=== PATIENT | female | born 1990 | race Caucasian/White ===

== ENCOUNTER 2016-09-24 21:49 | Outpatient (CLI) | payer MEDICAID ==
[~2016-09-24] VITALS: Ht 167.6 cm; Wt 93.0 kg
[2016-09-24 22:10] VITALS: BP 103/70; PULSE 84; RESP 18
[2016-09-24 22:48] VITALS: Ht 167.6 cm; Wt 93.0 kg
[2016-09-24 23:52] LABS: BASOPHILS % 0.2 % (0.0-2.0); EOSINOPHILS # 0.1 10^3/ul (0.0-0.5); HEMATOCRIT 31.9 % (37.0-47.0); HEMOGLOBIN 10.3 g/dl (12.0-16.0); LYMPHOCYTES # 2.6 10^3/ul (0.8-2.9); MEAN CORPUSCULAR HEMOGLOBIN 29.7 pg (29.0-33.0); MEAN CORPUSCULAR HGB CONC 32.3 g/dl (32.0-37.0); MEAN CORPUSCULAR VOLUME 91.9 fl (82.0-101.0); MEAN PLATELET VOLUME 10.7 fl (7.4-10.4); MONOCYTE # 0.7 10^3/ul (0.3-0.9); MONOCYTES % 6.6 % (0.0-11.0); NEUTROPHIL # 6.6 10^3/ul (1.6-7.5); NEUTROPHILS % 65.1 % (39.0-77.0); PLATELET COUNT 274 10^3/UL (140-415); RED BLOOD COUNT 3.47 10^6/ul (4.20-5.40); RED CELL DISTRIBUTION WIDTH 12.8 % (11.5-14.5); WHITE BLOOD COUNT 10.1 10^3/ul (4.8-10.8)
[2016-09-25 00:27] LABS: ADD UMIC NO; UR ASCORBIC ACID NEGATIVE (NEGATIVE); UR BILIRUBIN (Dip) NEGATIVE (NEGATIVE); UR BLOOD (Dip) NEGATIVE (NEGATIVE); UR CLARITY CLEAR (CLEAR); UR COLOR YELLOW (YELLOW); UR GLUCOSE (Dip) NEGATIVE (NEGATIVE); UR KETONES (Dip) NEGATIVE (NEGATIVE); UR LEUKOCYTE ESTERASE (Dip) NEGATIVE Leu/ul (NEGATIVE); UR NITRITE (Dip) NEGATIVE (NEGATIVE); UR SPECIFIC GRAVITY (Dip) 1.025 (1.003-1.030); UR TOTAL PROTEIN (Dip) NEGATIVE (NEGATIVE); UR UROBILINOGEN (Dip) NEGATIVE (NEGATIVE)
--- NOTE | 2016-09-25 00:27 | RADRPT ---
PROCEDURE: Limited OB ultrasound CLINICAL INDICATION: 26 year old female. Labor and delivery patient. Evaluate amniotic fluid. TECHNIQUE: Sonographic evaluation to assess the amniotic fluid index was performed. Transabdomina l imaging of the gravid uterus was performed. COMPARISON: None. FINDINGS: Estimated due date December 26, 2016 Gestational age by NICK 26 weeks 5 days A single live intrauterine in breech presentation with head on maternal left is iden tified. The heart rate measures 152 bpm. The amniotic -fluid index equals approximately 15.7 cm. There is an anterior placenta, grade 1. Cervix is closed and measures 5.7 cm. IMPRESSION: Single live intrauterine in breech presentation. Normal amniotic fluid volume. Amniotic fluid index measures 15.7 cm. RPTAT: HCTS Physician Andres Date Time Electronically viewed and signed by Physician Andres on 09/25/2016 00:26 CS/
--- NOTE | 2016-09-25 01:58 | PN ---
Triage Information Date/Time Reason for visit: Abd/pelvic pain Weeks of Gestation 26+ /Para 1/0 Diabetes: none Hypertention: none Objective Vital Signs Date Time Temp Pulse Resp B/P Pulse Ox O2 Delivery O2 Flow Rate FiO2 09/24/16 22:10 98.1 84 18 103/70 100 Room Air Heart Rate: 140's Contractions: None Exam labsWNL Back and Ab exam WNL Ultrasonographic finding reviewed Results/Medications Result Diagram: 09/24/16 2321 Results 24 hrs Laboratory Tests Test 09/24/16 22:30 09/24/16 23:21 09/24/16 23:30 Urine Color YELLOW Urine Clarity CLEAR Urine pH 6.0 Urine Specific [place] 1.025 Urine Ketones NEGATIVE Urine Nitrite NEGATIVE Urine Bilirubin NEGATIVE Urine Urobilinogen NEGATIVE Urine Leukocyte Esterase NEGATIVE Urine Hemoglobin NEGATIVE Urine Glucose NEGATIVE Urine Total Protein NEGATIVE White Blood Count 10.1 Red Blood Count 3.47 L Hemoglobin 10.3 L Hematocrit 31.9 L Mean Corpuscular Volume 91.9 Mean Corpuscular Hemoglobin 29.7 Mean Corpuscular Hemoglobin Concent 32.3 Red Cell Distribution Width 12.8 Platelet Count 274 Mean Platelet Volume 10.7 H Neutrophils % 65.1 Lymphocytes % 26.0 Monocytes % 6.6 Eosinophils % 1.0 Basophils % 0.2 Nucleated Red Blood Cells % 0.0 Neutrophils # 6.6 Lymphocytes # 2.6 Monocytes # 0.7 Eosinophils # 0.1 Basophils # 0.0 Nucleated Red Blood Cells # 0.0 Fibronectin NEGATIVE Disposition: Discharge Assessment/Plan precautions discussed hydration recommended follow up in her private physician tomorrow VALERIA GEE M.D. Sep 25, 2016 01:58
--- NOTE | 2016-09-25 07:56 | TRIAGE ---
OB Triage Datetime Report Generated by CPN: 09/25/2016 07:56 Datetime: 09/25/2016 02:00 Labor Evaluation Frequency: 0 Monitor Mode: External Resting Tone [place]: Relaxed Datetime: 09/25/2016 01:00 Labor Evaluation Frequency: 0 Monitor Mode: External Resting Tone [place]: Relaxed Datetime: 09/25/2016 00:00 Labor Evaluation Frequency: 0 Monitor Mode: External Resting Tone [place]: Relaxed Datetime: 09/24/2016 23:00 Labor Evaluation Frequency: 0 Monitor Mode: External Resting Tone [place]: Relaxed Datetime: 09/24/2016 22:09 Temperature Route: Oral Pain Assessment Pain Scale: 8 Pain Presence: Intermittent Pain Location: Abdomen; Back Pain Goal: 8 Pain Relief Measures: Comfort Measures Pain Assessment Comments: PT REPORTS PAIN RADIATING LEFT BACK TO RIGHT BACK Datetime: 09/24/2016 22:08 Monitor Mode: External Resting Tone [place]: Relaxed Heart Rate FHR Baseline Rate: 145 Monitor Mode: Doppler Comments: UNABLE TO DETECT FHR VIA US. DOPPLER USED TO CONFIRM FHR. Datetime: 09/24/2016 22:00 Assessment Type: Triage Maternal Assessment Level of Consciousness: Fully Conscious DTR's/Clonus: DTRs 2+; No Clonus Headache: Denies Blurred Vision: No Respiratory Effort: Unlabored; Regular Rhythm; Equal Expansion Breath Sounds, Left: Clear and Equal Breath Sounds, Right: Clear and Equal Nausea/Vomiting: Denies RUQ Epigastric Pain: Denies Lower Extremities Edema: None Degree: None Upper Extremities Edema: None Degree: None Facial Edema: None Fall Risk Assessment History of Falling: (0) No Secondary Diagnosis: (0) No Ambulatory Aid: (0) Bedrest/Nurse Assist IV Therapy: (0) No Gait: (0) Normal/Bedrest/Immobile Mental Status: (0) Oriented to Own Ability Fall Score: 0 Fall Risk Score Definition: No Risk: No action required Datetime: 09/24/2016 21:54 EGA: 26.5 Datetime: 09/24/2016 21:43 Stage of : OB Triage Time of Arrival: 09/24/2016 21:43 Arrived By: Wheelchair Arrived From: Emergency Dept Chief Complaint: Back pain radiating from left side to right side; abdominal pressure Movement: Decreased (Annotations: Data stored by CPN on behalf of user) Contractions: Denies/Absent Contractions: N/A Rupture of Membranes: Denies Vaginal Bleeding: None Vaginal Discharge: Denies Recent Sexual Intercouse: Yes Abdominal Trauma: Not Applicable Patient Complaints: Back Pain Time Provider Notified: 09/24/2016 23:02 Provider Notified: LABORIST MD GEE Initial Plan: DOPPLER FOR FHR; ORDERED FOR UA, VALDEMAR, CERVICAL LENGTH, FFN, CBC
== END 2016-09-25 02:05 | disposition home or self-care (01) ==
LOC: OBT 21:49 → L-D 21:51 → OBT 09-25 02:05
PROVIDERS: ATTEND Obstetrics & Gynecology
DX: O26.892 Other specified pregnancy related conditions, second trimester (principal); Z3A.26 26 weeks gestation of pregnancy; R10.2 Pelvic and perineal pain
CPT/HCPCS: 76815; 76817; 81003; 82731; 85025; Z7500; G0463

== ENCOUNTER 2016-12-01 14:18 | Outpatient (CLI) | payer MEDICAID ==
[~2016-12-01] VITALS: Ht 167.6 cm; Wt 98.7 kg
--- NOTE | 2016-12-01 15:27 | RADRPT ---
PROCEDURE: Obstetrical ultrasound CLINICAL INDICATION: Decreased movements TECHNIQUE: Multiple sonographic images of the pelvis were obtained. The images were reviewed on a PACS workstation. COMPARISON: None FINDINGS: The cervix is not well visualized. There is a single viable intrauterine gestation. Cardiac activity is present with 146 beats per minute. There is a breech presentation. The placenta is bilobed and fundal in location. There is no evidence for an abruption or placenta pr evia. There is a subjectively normal amount of amniotic fluid. Measurements were made in order to determine age. The results are as follows (cm): BPD =8.99 HC =33.08 AC =31.49 FL =6.85 Estimated gestational age by ultrasound of approximately 36 weeks, 1 day. The estimated date of delivery by ultrasound is 12/28/2016. Estimated gestational age by LMP of approximately 36 weeks, 3 days. The estimated date of delivery by LMP is 12/26/2016. EFW = 2744 grams (33rd percentile) IMPRESSION: Single viable intrauterine gestation of approximately 36 weeks, 1 day . The estimated date of delivery is 12/28/2016 . Dating by ultrasound is within 2 days of dating by LMP. Breech presentation. Fundal and bilobed placenta. Estimated weight is in the 33rd percentile. RPTAT: EE Physician Black Date Time Electronically viewed and signed by Physician Black on 12/01/2016 15:27 /
--- NOTE | 2016-12-01 15:28 | RADRPT ---
PROCEDURE: US OB biophysical profile. CLINICAL INDICATION: Biophysical profile TECHNIQUE: Multiple sonographic images of the pelvis were obtained. The images were reviewed on a PACS workstation. COMPARISON: September 24, 2016 FINDINGS: There is a single live intrauterine , in 10-gauge presentation. A normal heart rate i s identified measuring 179 beats per minute. The amniotic fluid index is within normal limits measur ing 9.5 cm. Biophysical profile: movement 2/2 tone 2/2. breathing 2/2 VALDEMAR 2/2 Total 09/19 IMPRESSION: 1. Biophysical profile score of 8/8. 2. Single live intrauterine in breech presentation with normal heart rate of 179 bpm . 3. Normal amniotic fluid index of 9.5 cm. Previously this measured 15.7 cm on September 25, 2016. Physician Karissa Date Time Electronically viewed and signed by Physician Karissa on 12/01/2016 15:28 LALA/
[2016-12-01 15:41] LABS: ADD UMIC YES; UR ASCORBIC ACID NEGATIVE (NEGATIVE); UR BACTERIA FEW /HPF (NONE SEEN); UR BILIRUBIN (Dip) NEGATIVE (NEGATIVE); UR BLOOD (Dip) NEGATIVE (NEGATIVE); UR CLARITY SLIGHTLY CLOUDY (CLEAR); UR COLOR YELLOW (YELLOW); UR GLUCOSE (Dip) NEGATIVE (NEGATIVE); UR KETONES (Dip) NEGATIVE (NEGATIVE); UR LEUKOCYTE ESTERASE (Dip) TRACE Leu/ul (NEGATIVE); UR MUCUS FEW /HPF (NONE SEEN); UR NITRITE (Dip) NEGATIVE (NEGATIVE); UR RBC 2 /HPF (0-5); UR SPECIFIC GRAVITY (Dip) 1.013 (1.003-1.030); UR SQUAMOUS EPITHELIAL CELL FEW /HPF (FEW); UR TOTAL PROTEIN (Dip) NEGATIVE (NEGATIVE); UR UROBILINOGEN (Dip) NEGATIVE (NEGATIVE)
[2016-12-01 15:53] LABS: BASOPHILS % 0.5 % (0.0-2.0); EOSINOPHILS % 0.3 % (0.0-7.0); HEMATOCRIT 34.4 % (37.0-47.0); HEMOGLOBIN 11.2 g/dl (12.0-16.0); LYMPHOCYTES # 2.2 10^3/ul (0.8-2.9); LYMPHOCYTES % 24.9 % (15.0-51.0); MEAN CORPUSCULAR HEMOGLOBIN 29.2 pg (29.0-33.0); MEAN CORPUSCULAR HGB CONC 32.6 g/dl (32.0-37.0); MEAN CORPUSCULAR VOLUME 89.8 fl (82.0-101.0); MEAN PLATELET VOLUME 11.5 fl (7.4-10.4); MONOCYTE # 0.5 10^3/ul (0.3-0.9); NEUTROPHIL # 5.9 10^3/ul (1.6-7.5); NEUTROPHILS % 67.6 % (39.0-77.0); PLATELET COUNT 250 10^3/UL (140-415); RED BLOOD COUNT 3.83 10^6/ul (4.20-5.40); RED CELL DISTRIBUTION WIDTH 13.4 % (11.5-14.5); WHITE BLOOD COUNT 8.7 10^3/ul (4.8-10.8)
[2016-12-01 16:09] LABS: INR 0.94; PROTIME 12.6 Sec (12.2-14.2)
[2016-12-01 16:10] LABS: PARTIAL THROMBOPLASTIN TIME 29.6 Sec (25.0-35.0)
[2016-12-01 16:33] LABS: ALBUMIN 3.3 g/dl (3.3-4.9); CREATININE 0.72 mg/dl (0.44-1.00); POTASSIUM 4.3 mmol/L (3.5-5.1); TOTAL PROTEIN 6.6 g/dl (6.1-8.1); URIC ACID 5.2 mg/dl (3.1-7.9)
[2016-12-01] MEDS ORDERED: LACTATED RINGER'S 1,000 ML IV SCH (16:35)
[2016-12-01 16:57] VITALS: Ht 167.6 cm; Wt 98.7 kg
[2016-12-01 17:09] VITALS: BP 124/80; PULSE 75; RESP 20
[2016-12-01] MEDS ORDERED: PREN-93 PO (18:29)
--- NOTE | 2016-12-01 18:45 | PN ---
Triage Information Date/Time Reason for visit: Decreased movement Weeks of Gestation 36 weeks 3 days /Para Diabetes: none Objective Vital Signs Date Time Temp Pulse Resp B/P Pulse Ox O2 Delivery O2 Flow Rate FiO2 12/01/16 17:09 98.1 75 20 124/80 99 Room Air Heart Rate: 120's Contractions: None Exam 36 weeks 3 days came to the triage unit for decreased movement underwent biophysical profile which was 09/19 VALDEMAR 9.5 recommended IV hydration return to triage unit tomorrow to repeat VALDEMAR on ultrasound examination was noted baby's breech presented, patient will return a.m. for repeat VALDEMAR/ NST Results/Medications Result Diagram: 12/01/16 1532 12/01/16 1532 Results 24 hrs Laboratory Tests Test 12/01/16 14:25 12/01/16 15:32 12/01/16 15:33 Urine Color YELLOW Urine Clarity SLIGHTLY CLOUDY A Urine pH 6.0 Urine Specific [place] 1.013 Urine Ketones NEGATIVE Urine Nitrite NEGATIVE Urine Bilirubin NEGATIVE Urine Urobilinogen NEGATIVE Urine Leukocyte Esterase TRACE A Urine Microscopic RBC 2 Urine Microscopic WBC 4 Urine Squamous Epithelial Cells FEW Urine Bacteria FEW A Urine Mucus FEW A Urine Hemoglobin NEGATIVE Urine Glucose NEGATIVE Urine Total Protein NEGATIVE White Blood Count 8.7 Red Blood Count 3.83 L Hemoglobin 11.2 L Hematocrit 34.4 L Mean Corpuscular Volume 89.8 Mean Corpuscular Hemoglobin 29.2 Mean Corpuscular Hemoglobin Concent 32.6 Red Cell Distribution Width 13.4 Platelet Count 250 Mean Platelet Volume 11.5 H Neutrophils % 67.6 Lymphocytes % 24.9 Monocytes % 6.0 Eosinophils % 0.3 Basophils % 0.5 Nucleated Red Blood Cells % 0.0 Neutrophils # 5.9 Lymphocytes # 2.2 Monocytes # 0.5 Eosinophils # 0.0 Basophils # 0.0 Nucleated Red Blood Cells # 0.0 Sodium Level 136 Potassium Level 4.3 Chloride Level 106 Carbon Dioxide Level 22 Anion Gap 12 Blood Urea Nitrogen 11 Creatinine 0.72 Glucose Level 88 Uric Acid 5.2 Calcium Level 9.0 Total Bilirubin 0.0 L Direct Bilirubin 0.00 Indirect Bilirubin 0.0 Aspartate Amino Transf (AST/SGOT) 35 Alanine Aminotransferase (ALT/SGPT) 45 Alkaline Phosphatase 145 H Total Protein 6.6 Albumin 3.3 Globulin 3.30 H Albumin/Globulin Ratio 1.00 Prothrombin Time 12.6 Prothrombin Time Ratio 1.0 INR International Normalized Ratio 0.94 Activated Partial Thromboplast Time 29.6 Fibrinogen 647.0 H Plasma Fibrin Degradation Products Pending Medications Current Medications Lactated Ringer's (Lr) 1,000 ml @ 125 mls/hr Q8H IV Last administered on 12/01t 17:30; Admin Dose 125 MLS/HR; Start 12/01/16 at 16:35 Disposition: Discharge KENDRA JARA MD Dec 01, 2016 18:45
--- NOTE | 2016-12-01 19:22 | TRIAGE ---
OB Triage Datetime Report Generated by CPN: 12/01/2016 19:21 Datetime: 12/01/2016 18:21 Labor Evaluation Frequency: 0 Monitor Mode: External Duration (sec)2399: 0 Heart Rate FHR Baseline Rate: 155 Monitor Mode: External US Decelerations: None Category: Category I Comments: NST REACTIVE FOR GESTATIONAL AGE Datetime: 12/01/2016 17:19 Labor Evaluation Frequency: 0 Monitor Mode: External Duration (sec)2399: 0 Resting Tone [place]: Relaxed Heart Rate FHR Baseline Rate: 125 Monitor Mode: External US Variability: Moderate 6-25 bpm Accelerations: 15X15 Decelerations: None Category: Category I Datetime: 12/01/2016 16:31 Time of Arrival: 12/01/2016 14:12 EGA: 36.3 Arrived By: Ambulatory Arrived From: Home Chief Complaint: DFM Movement: Decreased Contractions: Denies/Absent Rupture of Membranes: Denies Vaginal Bleeding: None Vaginal Discharge: Denies Recent Sexual Intercouse: Denies Abdominal Trauma: Not Applicable Patient Complaints: None Time Provider Notified: 12/01/2016 14:30 Provider Notified: DR. JARA Initial Plan: NST Datetime: 12/01/2016 16:16 Labor Evaluation Frequency: 0 Monitor Mode: External Duration (sec)2399: 0 Resting Tone [place]: Relaxed Heart Rate FHR Baseline Rate: 145 Monitor Mode: External US Variability: Moderate 6-25 bpm Accelerations: 15X15 Decelerations: None Category: Category I Datetime: 09/24/2016 22:00 Fall Risk Assessment Fall Score: 0 Fall Risk Score Definition: No Risk: No action required Datetime: 09/24/2016 21:54 EGA: 26.5
[2016-12-01 19:57] LABS: FIBRIN SPLIT PRODUCT <10 ug/ml (<10)
== END 2016-12-01 18:40 | disposition home or self-care (01) ==
LOC: L-D 14:18 → OBT 14:18
PROVIDERS: ATTEND Obstetrics & Gynecology
DX: O36.8130 Decreased fetal movements, third trimester, not applicable or unspecified (principal); Z3A.36 36 weeks gestation of pregnancy
CPT/HCPCS: 36415; 76815; 76818; 80053; 81001; 84560; 85025; 85362; 85384; 85610; 85730; 96360; J7120; Z7500; G0463

== ENCOUNTER 2016-12-02 16:40 | Outpatient (CLI) | payer MEDICAID ==
[~2016-12-02] VITALS: Ht 167.6 cm; Wt 98.5 kg
[~2016-12-02 16:40] MED LIST: PREN-93 PO
[2016-12-02 16:52] VITALS: Ht 167.6 cm; Wt 98.5 kg
[2016-12-02 16:53] VITALS: BP 129/83; PULSE 70; RESP 16
--- NOTE | 2016-12-02 17:38 | RADRPT ---
PROCEDURE: US evaluation of amniotic fluid volume. CLINICAL INDICATION: Low amniotic fluid volume. TECHNIQUE: Multiple sonographic images of the gravid uterus were obtained utilizing velez-scale shamar ging. Sagittal and transverse images were obtained. The images were reviewed on a PACS workstation . VALDEMAR was measured. COMPARISON: 12/01/2016. FINDINGS: There is a single live intrauterine . heart rate is 150 beats per minute. Position is breech. Placenta is bilobed anterior / posterior grade II with no abruption or previa. VALDEMAR is 11.5 cm. (Normal = 5-20 cm.) IMPRESSION: 1. VALDEMAR is 11.5 cm. 2. Position is breech. RPTAT: QQ .Eulogio Denson MD, Date Time Electronically viewed and signed by .Eulogio Denson MD, on 12/02/2016 17:37 .R/
--- NOTE | 2016-12-02 17:59 | CONS ---
Date/Time of Note Date/Time of Note DATE: 12/02/16 TIME: 17:51 Consultation Date/Type/Reason Admit Date/Time December 02, 2016 OB triage consult this patient is a 26 years old 1 para 0 whose estimated date of confinement is December 26, 2016 which makes her 36 weeks and 4 days today. She came to OB triage to rule out oligohydramnios . On examination she is a well-developed well-nourished patient in no acute distress her general vital signs are normal with blood pressure of 129/83 , pulse rate of 70, respirations 16, and temperature 98.2. Her abdomen is soft she has very rare contractions, heart tracing is reactive with good variability occasional acceleration no sign of decelerations. Constitutional: No chills, No diaphoresis, No disoriented, No febrile, No improved, No no complaints, No other, No poor po, No requiring IVF, No requiring O2 Eyes: No discharge, No no complaints, No other, No pain, No redness, No visual change ENT: No bleeding, No congestion, No discharge, No dysphagia, No no complaints, No other, No pain, No sore throat Respiratory: No cough, No no complaints, No other, No pain, No pleuritic pain, No shortness of breath, No sputum, No wheezing Cardiovascular: No chest pain, No edema, No lightheadedness, No no complaints, No orthopenea, No other, No palpitations, No paroxysmal nocturnal dyspnea Gastrointestinal: No blood, No constipation, No decreased appetite, No diarrhea , No flatus, No nausea, No no complaints, No other, No pain, No passing stool, No vomiting Genitourinary: other, No bleeding, No discharge, No dysuria, No flank pain, No hematuria, No no complaints Musculoskeletal: No back pain, No bone/joint pain, No neck pain, No no complaints, No other, No restricted range of motion, No swelling Skin: No bruising, No erythema, No laceration, No no complaints, No other, No pruritis, No rash, No skin lesions Neurologic: other (Knee-jerk reflexes are normal), No confusion, No dizziness, No focal-weakness, No headache, No no complaints , No seizure, No syncope Endocrine: No dry skin, No no complaints, No other, No polydypsia, No polyuria , No temp intolerance Lymphatic: No adenopathy, No lymphadema, No no complaints, No other, No tender nodes Additional Comments .;Ultrasound study The multiple sonographic images that were taken from description revealed a single live intrauterine with heart rate of 150 bpm in breech presentation. The placenta is bilobed anterior /posterior Grade 2 with no evidence of abruption of placenta or previa Her amniotic fluid index was reported 11.5 cm. 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 She was advised to return to OB triage in case of labor vaginal bleeding or very low movement : Social History Smoking Status: Never smoker Exam/Review of Systems Vital Signs Vitals Vital Signs Date Time Temp Pulse Resp B/P Pulse Ox O2 Delivery O2 Flow Rate FiO2 12/02/16 16:53 98.2 70 16 129/83 TARUN JOHNSON MD Dec 02, 2016 17:59
== END 2016-12-02 17:52 | disposition home or self-care (01) ==
LOC: OBT 16:40 → L-D 16:40 → OBT 17:52
PROVIDERS: ATTEND Obstetrics & Gynecology
DX: O41.93X0 Disorder of amniotic fluid and membranes, unspecified, third trimester, not applicable or unspecified (principal); Z3A.36 36 weeks gestation of pregnancy
CPT/HCPCS: 76815; Z7500; G0463

== ENCOUNTER 2016-12-12 12:45 | Inpatient (IN) | payer MEDICAID ==
[~2016-12-12] VITALS: Ht 167.6 cm; Wt 99.7 kg
[2016-12-12 13:05] VITALS: Ht 167.6 cm; Wt 99.7 kg
[2016-12-12 13:06] VITALS: BP 138/95; PULSE 100; RESP 16
[2016-12-12] MEDS ORDERED: MISOPROSTOL 200 MCG TAB PR PRN (14:30)
[2016-12-12] MEDS ORDERED: OXYTOCIN 30 UNITS/LR 500 ML IV PRN (14:30)
[2016-12-12] MEDS ORDERED: MAGNESIUM SULFATE 4 GM/100 ML 100 ML IV SCH (14:30)
[2016-12-12] MEDS ORDERED: HYDROCODONE/APAP (5/325) TAB PO PRN (14:30)
[2016-12-12] MEDS ORDERED: METHYLERGONOVINE 0.2 MG INJ IM PRN (14:30)
[2016-12-12] MEDS ORDERED: IBUPROFEN 600 MG TAB PO PRN (14:30)
[2016-12-12] MEDS ORDERED: OXYTOCIN 30 UNITS/LR 500 ML IV SCH ×2 (14:30)
[2016-12-12] MEDS ORDERED: CARBOPROST 250 MCG INJ IM PRN (14:30)
[2016-12-12] MEDS ORDERED: LIDOCAINE 1% (MPF) 30 ML INJ INJ PRN (14:30)
[2016-12-12] MEDS ORDERED: DINOPROSTONE 10 MG VAG SUPP VAG ONE (14:30)
[2016-12-12] MEDS: LACTATED RINGER'S 1,000 ML IV SCH ×2 (14:57→23:15)
[2016-12-12] MEDS ORDERED: LACTATED RINGER'S 1,000 ML IV PRN (15:00)
--- NOTE | 2016-12-12 15:10 | TRIAGE ---
OB Triage Datetime Report Generated by CPN: 12/12/2016 15:10 Datetime: 12/12/2016 14:50 Assessment Type: Admission Assessment Vaginal Bleeding: None Maternal Assessment Level of Consciousness: Fully Conscious DTR's/Clonus: DTRs 2+; No Clonus Blurred Vision: No Respiratory Effort: Unlabored; Regular Rhythm; Equal Expansion Nausea/Vomiting: Denies RUQ Epigastric Pain: Denies Lower Extremities Edema: Bilateral Lower Extremities Degree: Pitting Upper Extremities Edema: Bilateral Upper Extremities Degree: None Facial Edema: None Fall Risk Assessment History of Falling: (0) No Secondary Diagnosis: (0) No Ambulatory Aid: (0) Bedrest/Nurse Assist IV Therapy: (0) No Gait: (0) Normal/Bedrest/Immobile Mental Status: (0) Oriented to Own Ability Fall Score: 0 Fall Risk Score Definition: No Risk: No action required Heart Rate FHR Baseline Rate: 140 Variability: Moderate 6-25 bpm Accelerations: 15X15 Decelerations: None Category: Category I Pain Assessment Pain Scale: 0 Pain Presence: None/Denies Pain Type: N/A Pain Goal: 2 Vaginal Exam Membrane Status: Intact Datetime: 12/12/2016 14:27 Monitor Mode: External Monitor Mode: External US Pain Assessment Pain Scale: 0 Pain Presence: None/Denies Pain Type: N/A Pain Goal: 0 Vaginal Exam Membrane Status: Intact Datetime: 12/12/2016 14:17 Labor Evaluation Frequency: occ Monitor Mode: External Duration (sec)2399: 60 Quality: Mild Pattern: Normal: <= 5 Contractions in 10 Minutes Resting Tone [place]: Relaxed Heart Rate FHR Baseline Rate: 145 Monitor Mode: External [place] Variability: Moderate 6-25 bpm Accelerations: 15X15 Decelerations: None Category: Category I Datetime: 12/12/2016 14:00 Labor Evaluation Frequency: occ Monitor Mode: External Duration (sec)2399: 50-60 Quality: Mild Pattern: Normal: <= 5 Contractions in 10 Minutes Resting Tone [place]: Relaxed Heart Rate FHR Baseline Rate: 145 Monitor Mode: External US Variability: Moderate 6-25 bpm Accelerations: 15X15 Decelerations: None Category: Category I Pain Assessment Pain Scale: 3 Pain Presence: Constant Pain Type: Dull Pain Location: Head Pain Goal: 3 Datetime: 12/12/2016 13:45 Stage of : OB Triage Datetime: 12/12/2016 13:30 Stage of : OB Triage Labor Evaluation Frequency: IRREG Monitor Mode: External Duration (sec)2399: 60-90 Quality: Mild Heart Rate FHR Baseline Rate: 135 Monitor Mode: External US Variability: Moderate 6-25 bpm Accelerations: 15X15 Decelerations: None Category: Category I Datetime: 12/12/2016 13:04 Assessment Type: Triage Maternal Assessment Level of Consciousness: Fully Conscious DTR's/Clonus: DTRs 2+; No Clonus Headache: Unilateral (Annotations: Right side) Blurred Vision: No Respiratory Effort: Unlabored; Regular Rhythm; Equal Expansion Breath Sounds, Left: Clear and Equal Breath Sounds, Right: Clear and Equal Nausea/Vomiting: Denies RUQ Epigastric Pain: Denies Lower Extremities Edema: None Degree: None Upper Extremities Edema: None Facial Edema: None Fall Risk Assessment History of Falling: (0) No Secondary Diagnosis: (0) No Ambulatory Aid: (0) Bedrest/Nurse Assist IV Therapy: (0) No Gait: (0) Normal/Bedrest/Immobile Mental Status: (0) Oriented to Own Ability Fall Score: 0 Fall Risk Score Definition: No Risk: No action required Datetime: 12/12/2016 12:54 Time of Arrival: 12/12/2016 12:40 EGA: 38.1 Arrived By: Ambulatory Arrived From: Office Chief Complaint: Pt. came to hospital from md office with prescription for eval for pih due to bp 154/104, 151/100 @ office, pt c/o right headache, deny visual disturbance, deny epigastric pain, den y dizziess Movement: Present Contractions: Denies/Absent Rupture of Membranes: Denies Vaginal Discharge: Denies Recent Sexual Intercouse: Denies Abdominal Trauma: Not Applicable Patient Complaints: Headache Time Provider Notified: 12/12/2016 12:59 Provider Notified: Initial Plan: pih labs Datetime: 12/02/2016 17:40 Labor Evaluation Frequency: occ Monitor Mode: External Duration (sec)2399: 60-80 Quality: Mild Pattern: Normal: <= 5 Contractions in 10 Minutes Resting Tone [place]: Relaxed Heart Rate FHR Baseline Rate: 145 Monitor Mode: External US Variability: Moderate 6-25 bpm Accelerations: 15X15 Decelerations: None Category: Category I Pain Presence: None/Denies Pain Type: N/A Datetime: 12/02/2016 16:55 Maternal Assessment Level of Consciousness: Fully Conscious DTR's/Clonus: DTRs 2+; No Clonus Headache: Denies Blurred Vision: No Respiratory Effort: Unlabored; Regular Rhythm; Equal Expansion Breath Sounds, Left: Clear and Equal Breath Sounds, Right: Clear and Equal Nausea/Vomiting: Denies RUQ Epigastric Pain: Denies Lower Extremities Edema: None Degree: None Upper Extremities Edema: None Facial Edema: None Fall Risk Assessment History of Falling: (0) No Secondary Diagnosis: (0) No Ambulatory Aid: (0) Bedrest/Nurse Assist IV Therapy: (0) No Gait: (0) Normal/Bedrest/Immobile Mental Status: (0) Oriented to Own Ability Fall Score: 0 Fall Risk Score Definition: No Risk: No action required Datetime: 12/02/2016 16:54 Time of Arrival: 12/02/2016 16:35 EGA: 36.5 Arrived By: Ambulatory Arrived From: Home Chief Complaint: Follow up nst and armani Movement: Present Contractions: Denies/Absent Patient Complaints: None Initial Plan: nst, u/s for armani Datetime: 12/01/2016 16:31 EGA: 36.4 Datetime: 12/01/2016 14:30 Stage of : OB Triage Assessment Type: Triage Maternal Assessment Level of Consciousness: Fully Conscious DTR's/Clonus: DTRs 2+; No Clonus Headache: Denies Blurred Vision: No Respiratory Effort: Unlabored; Regular Rhythm; Equal Expansion Breath Sounds, Left: Clear and Equal Breath Sounds, Right: Clear and Equal Nausea/Vomiting: Denies RUQ Epigastric Pain: Denies Lower Extremities Edema: None Degree: None Upper Extremities Edema: None Degree: None Facial Edema: None Temperature Route: Axillary Fall Risk Assessment History of Falling: (0) No Secondary Diagnosis: (0) No Ambulatory Aid: (0) Bedrest/Nurse Assist IV Therapy: (0) No Gait: (0) Normal/Bedrest/Immobile Mental Status: (0) Oriented to Own Ability Fall Score: 0 Fall Risk Score Definition: No Risk: No action required Datetime: 09/24/2016 22:00 Fall Score: 0 Fall Risk Score Definition: No Risk: No action required Datetime: 09/24/2016 21:54 EGA: 26.6
[2016-12-12] MEDS: MAGNESIUM SULFATE 20 GM/500 ML 500 ML IV SCH (15:31)
--- NOTE | 2016-12-12 16:53 | TRIAGE ---
OB Triage Datetime Report Generated by CPN: 12/12/2016 16:53 Datetime: 12/12/2016 16:30 Frequency: 0 Monitor Mode: External Resting Tone [place]: Relaxed FHR Baseline Rate: 140 Monitor Mode: External US FHR Baseline Changes: No Baseline Change Variability: Moderate 6-25 bpm Accelerations: 15X15 Decelerations: None Category: Category I Datetime: 12/12/2016 15:54 Level of Consciousness: Fully Conscious DTR's/Clonus: DTRs 1+ Headache: Denies Nausea/Vomiting: Denies RUQ Epigastric Pain: Denies Frequency: 0 Monitor Mode: External Resting Tone [place]: Relaxed FHR Baseline Rate: 140 Monitor Mode: External US FHR Baseline Changes: No Baseline Change Variability: Moderate 6-25 bpm Accelerations: 15X15 Decelerations: None Category: Category I Pain Scale: 0 Pain Presence: None/Denies Pain Relief Measures: Comfort Measures Datetime: 12/12/2016 15:45 Dilatation (cms): 0.0 Effacement (%): 20 Station: -3 Datetime: 12/12/2016 15:44 Dilatation (cms): 0.0 Effacement (%): 20 Station: -2 Exam By: ps Vaginal Bleeding: None Cervix, Consistency: Firm Cervix, Position: Posterior Presentation 'A': Cephalic Lie 'A': Longitudinal Datetime: 12/12/2016 15:23 Lower Extremities Edema: SCD CALF LENGTH APPLIED Datetime: 12/12/2016 15:00 Frequency: 0 Monitor Mode: External Resting Tone [place]: Relaxed FHR Baseline Rate: 140 Monitor Mode: External US FHR Baseline Changes: No Baseline Change Variability: Moderate 6-25 bpm Accelerations: 15X15 Decelerations: None Category: Category I Pain Scale: 0 Pain Presence: None/Denies Pain Relief Measures: Comfort Measures Datetime: 12/12/2016 14:50 Lower Extremities Edema: Bilateral Lower Extremities Fall Score: 0 Fall Risk Score Definition: No Risk: No action required Frequency: 0 Datetime: 12/12/2016 14:30 Stage of : Labor Datetime: 12/12/2016 14:23 Time of Arrival: 12/12/2016 14:23 EGA: 38.1 Arrived By: Ambulatory Arrived From: TRIAGE Datetime: 12/12/2016 13:04 Fall Score: 0 Fall Risk Score Definition: No Risk: No action required Datetime: 12/12/2016 12:54 EGA: 38.1 Chief Complaint: Pt. came to hospital from md office with prescription for eval for pih due to bp 154/104, 151/100 @ office, pt c/o right side headache, deny visual disturbance, deny epigastric pain , deny dizziess Vaginal Bleeding: None Datetime: 12/02/2016 16:55 Fall Score: 0 Fall Risk Score Definition: No Risk: No action required Datetime: 12/02/2016 16:54 EGA: 36.5 Datetime: 12/01/2016 16:31 EGA: 36.4 Datetime: 12/01/2016 14:30 Fall Score: 0 Fall Risk Score Definition: No Risk: No action required Datetime: 09/24/2016 22:00 Fall Score: 0 Fall Risk Score Definition: No Risk: No action required Datetime: 09/24/2016 21:54 EGA: 26.6 Presentation 'A': Cephalic
--- NOTE | 2016-12-12 17:02 | HP ---
Date/Time of Note Date/Time of Note DATE: 12/12/16 TIME: 16:50 OB - History Hx of Present Free Text/Dictation This is a 26 years old female EDC December 25, 2016 admitted to [facility] at 38 weeks and 1 day with chief complaint of headache, during the preliminary evaluation noted her blood pressure is elevated 155/100, but negative urine protein considering patient's headache with elevated blood pressure she was placed on magnesium sulfate for seizure prevention, pelvic examination on admission, cervix closed, 20% effaced, vertex is -3 station and planed for Cervidil induction. Chief Complaint: 38 weeks plus , headache, rated blood pressure Estimated Due Date: Dec 25, 2016 : 1 Para: 0 Care: Limited Care Ultrasounds: Normal mid trimester US Obstetrical Complications: None Medical Complications: Musculoskeletal Past Family/Social History * Past Medical, Surgical, Family and Obstetric Histories reviewed from chart. Rubella: immune RPR/VDRL: Negative GBS Status: Negative HBsAG: Negative OB Admission Exam Vital Signs Vital Signs Vital Signs Date Time Temp Pulse Resp B/P Pulse Ox O2 Delivery O2 Flow Rate FiO2 12/12/16 13:06 98.1 100 16 138/95 Physical Exam HEENT: WNL Heart: Rhythm Normal Lungs: Clear, Equal Abdomen: WNL Extremities: Normal Reflexes: Normal Cervical Dilatation: None Effacement: 25% Station: -2 Membranes: Intact Heart Rate: 130's Accelerations: Accelerations Present Varibility: Moderate Contractions on Admission: >10 Minutes Apart Intensity: Mild Last 72 hours Lab Results CBC & BMP 12/12/16 13:25 Liver Function Test 12/12/16 13:25 Alanine Aminotransferase (ALT/SGPT) 48 Albumin 3.3 Alkaline Phosphatase 158 H Aspartate Amino Transf (AST/SGOT) 37 Direct Bilirubin 0.00 Total Protein 6.9 OB Assessment/Plan Reason for admission: induction of labor Other plan: 26 years old EDC December 25 admitted to the hospital at 38 weeks and 1 day with complaint of headache with elevated blood pressure suspected - induced hypertension, she is started on magnesium sulfate, and Cervidil induction reason for induction was discussed with the patient, and all her questions answered KENDRA JARA MD Dec 12, 2016 17:01
[2016-12-13] MEDS: MAGNESIUM SULFATE 20 GM/500 ML 500 ML IV SCH ×3 (00:44→21:46)
--- NOTE | 2016-12-13 02:32 | RADRPT ---
PROCEDURE: Limited OB ultrasound CLINICAL INDICATION: Labor TECHNIQUE: Limited sonographic evaluation of the gravid uterus was performed to assess the p resentation. COMPARISON: 12/01/2016. FINDINGS: Single live intrauterine with cardiac heart rate of 166 beats per minute is identifi ed. Fetus is in a cephalic presentation. Placenta is anterior. IMPRESSION: Single live intrauterine with cephalic presentation. RPTAT: HMVK .Donald Mckenna MD, MD Date Time Electronically viewed and signed by .Donald Mckenna MD, on 12/13/2016 02:31 .K/
[2016-12-13] MEDS: OXYTOCIN 30 UNITS/LR 500 ML IV SCH ×2 (05:25→21:47)
[2016-12-13] MEDS ORDERED: AL HYDROX/MG HYDROX/SIMETH 30 ML CUP PO PRN (07:50)
[2016-12-13] MEDS ORDERED: ACETAMINOPHEN 325 MG TAB PO STA (07:51)
[2016-12-13] MEDS ORDERED: ACETAMINOPHEN 325 MG TAB PO PRN ×2 (08:00)
--- NOTE | 2016-12-13 10:38 | RADRPT ---
PROCEDURE: OB ultrasound for biophysical profile CLINICAL INDICATION: induced hypertension TECHNIQUE: Multiple sonographic images of the pelvis were obtained. Transabdominal views of the g ravid uterus are available for review. The images were reviewed on a PACS workstation. COMPARISON: Biophysical profile dated 12/01/2016 FINDINGS: breathing movement = 2/2 tone = 2/2 motion = 2/2 VALDEMAR = 2/2 VALDEMAR = 6.8 cm Single live intrauterine with cardiac activity of 152 bpm. position is cephal ic. The placenta is anterior. IMPRESSION: 1. Single live intrauterine gestation. 2. Biophysical profile = 09/19. 3. VALDEMAR = 6.8 cm. RPTAT: HH .Sandra Mccollum MD, Date Time Electronically viewed and signed by .Sandra Mccollum MD, on 12/13/2016 10:38 .G/
[2016-12-13] MEDS: LACTATED RINGER'S 1,000 ML IV SCH (11:27)
[2016-12-13] MEDS ORDERED: BUTORPHANOL 2 MG INJ ONE (16:43)
[2016-12-13] MEDS ORDERED: BUTORPHANOL 2 MG INJ IV PRN (16:45)
[2016-12-13] MEDS ORDERED: FENTAnyl 2MCG/ML-ROPIV 0.2% 100 ML ONE (20:37)
[2016-12-13] MEDS ORDERED: NALOXONE (0.4 MG/ML) INJ IV PRN (23:00)
[2016-12-13] MEDS ORDERED: AMPICILLIN 2 GM/NS (PMX) 100 ML IV ONE (23:00)
[2016-12-13] MEDS ORDERED: KETOROLAC 30 MG INJ IV PRN (23:00)
[2016-12-13] MEDS ORDERED: HYDROmorphONE 0.5 MG/0.5 ML SYG IV PRN ×2 (23:00)
[2016-12-13] MEDS ORDERED: ONDANSETRON 4 MG INJ IV PRN (23:00)
[2016-12-13] MEDS ORDERED: FENTAnyl 2MCG/ML-ROPIV 0.2% 100 ML BAG EPI SCH (23:00)
[2016-12-13] MEDS ORDERED: DIPHENHYDRAMINE 50 MG INJ IV PRN (23:00)
[2016-12-14] VITALS (7 sets, daily range): BP systolic 130–162; BP diastolic 74–104; PULSE 72–80; RESP 17–75
[2016-12-14] MEDS: AMPICILLIN 1 GM/NS (PMX) 50 ML IV SCH ×3 (03:11→11:08)
[2016-12-14] MEDS: LACTATED RINGER'S 1,000 ML IV SCH (04:47)
[2016-12-14] MEDS ORDERED: CEFAZOLIN 2 GM/50 ML (PMX) 50 ML IVPB ONE (09:30)
[2016-12-14] MEDS ORDERED: MAGNESIUM SULFATE 20 GM/500 ML 500 ML IV SCH (10:00)
--- NOTE | 2016-12-14 13:30 | LDN ---
Date/Time of Note Date/Time of Note DATE: 12/14/16 TIME: 13:26 Delivery Summary Normal spontaneous vaginal delivery of a baby girl from OA position shoulders delivered without any difficulty rest of the baby's body followed cord clamped after stopped pulsation placenta spontaneous expulsion inspected complete baby had nuchal cord 1 patient sustained small first-degree perineal laceration and 2 paraurethral 1 cm laceration repaired with 3-0 and 4-0 chromic catgut estimated blood loss 200 cc Weeks of Gestation 38 weeks 2 days Placenta Delivered: Spontaneously Meconium: none Episiotomy: No Laceration repair: First-degree perineal laceration and 1 cm bilateral inner labia minora laceration repaired with 301 4-0 chromic catgut Anesthesia type: Epidural Estimated blood loss: 200 Sponge & Needle done & correct: Yes All needle counts correct: Yes Any foreign bodies felt in the: No Problems: Infant Delivery Information Sex Sex: female Apgars 1 Minute: 9 5 Minute: 9 Suctioning Nose & mouth suctioned at pushpa: Yes Delee suction performed: No Umbilical Cord Umbilical cord with: 3 Vessels Cord presentations: nuchal cord Nuchal cord present X: 1 Cord Blood was obtained: Yes KENDRA JARA MD Dec 14, 2016 13:30
[2016-12-14] MEDS ORDERED: OXYCODONE/ASPIRIN (4.88/325) TAB PO PRN (16:30)
[2016-12-14] MEDS ORDERED: LANOLIN 7 GM TUBE TOP PRN (16:30)
[2016-12-14] MEDS ORDERED: ONDANSETRON 4 MG INJ IV PRN (16:30)
[2016-12-14] MEDS ORDERED: ACETAMINOPHEN 325 MG TAB PO PRN (16:30)
[2016-12-14] MEDS ORDERED: HYDROCODONE/APAP (5/325) TAB PO PRN ×2 (16:30)
[2016-12-14] MEDS ORDERED: DIBUCAINE 1% 30 GM OINT PR PRN (16:30)
[2016-12-14] MEDS: WITCH HAZEL/GLYCERIN PAD PR PRN (17:42)
[2016-12-14] MEDS: BENZOCAINE 20% 56 ML SPRAY TOP PRN (17:42)
[2016-12-14] MEDS: OXYCODONE/ASPIRIN (4.88/325) TAB PO PRN (17:43)
[2016-12-14] MEDS: IBUPROFEN 600 MG TAB PO SCH ×2 (17:57→23:37)
[2016-12-14] MEDS: MAGNESIUM SULFATE 20 GM/500 ML 500 ML IV SCH (19:51)
[2016-12-14] MEDS: OXYTOCIN 30 UNITS/LR 500 ML IV SCH ×2 (19:54→20:02)
[2016-12-15] VITALS (15 sets, daily range): BP systolic 106–164; BP diastolic 63–98; PULSE 66–85; RESP 16–20
[2016-12-15] MEDS ORDERED: LACTATED RINGER'S 1,000 ML IV PRN (02:30)
[2016-12-15] MEDS: IBUPROFEN 600 MG TAB PO SCH ×2 (05:31→12:23)
[2016-12-15] MEDS: MAGNESIUM SULFATE 20 GM/500 ML 500 ML IV SCH (07:39)
[2016-12-15] MEDS: SENNA/DOCUSATE NA (8.6MG/50MG) TAB PO SCH ×2 (08:55→20:02)
[2016-12-15] MEDS: OXYCODONE/ASPIRIN (4.88/325) TAB PO PRN (15:16)
--- NOTE | 2016-12-15 16:22 | QN ---
Documentation Comment day 1 Afebrile Vital signs stable Abdomen soft, uterus firm, lochia normal, extremity normal Complaining of uterine cramping to take ibuprofen 800 mg 1 every 6 hours as needed KENDRA JARA MD Dec 15, 2016 16:22
[2016-12-15] MEDS: IBUPROFEN 800 MG TAB PO SCH (17:33)
[2016-12-16] MEDS: IBUPROFEN 800 MG TAB PO SCH ×3 (00:28→11:33)
[2016-12-16 04:30] VITALS: BP 122/76; PULSE 73; RESP 18
[2016-12-16 08:00] VITALS: BP 132/80; PULSE 79; RESP 18
[2016-12-16] MEDS ORDERED: MEASLES,MUMPS,RUBELLA VACCINE INJ SC* ONE (09:00)
[2016-12-16] MEDS: SENNA/DOCUSATE NA (8.6MG/50MG) TAB PO SCH (09:18)
[2016-12-16] MEDS: WITCH HAZEL/GLYCERIN PAD PR PRN (11:33)
[2016-12-16] MEDS: BENZOCAINE 20% 56 ML SPRAY TOP PRN (11:34)
--- NOTE | 2016-12-16 11:49 | DS ---
Date/Time of Note Date/Time of Note DATE: 12/16/16 TIME: 11:40 Obstetrical Discharge Record Final Diagnosis Final Diagnosis: Term delivered Vaginal Delivery Obstetrical Delivery: Spontaneous Section Primary Indication Admitted in labor. Was complaining of some head ache BP was elevated Complications Augmentation: No Induction: No Gestational Age at Rupture Laboratory Tests Test 12/15/16 12:59 Magnesium Level 6.1mg/dl Current Medications Medications (Trade) Dose Ordered Sig/Marquis Route PRN Reason Start Time Stop Time Status Last Admin Dose Admin Lactated Ringer's (Lr) 1,000 ml @ 125 mls/hr Q8H IV 12/12/16 14:10 12/14/16 16:04 DC 12/14/16 04:47 Dinoprostone (Cervidil Vaginal Supp) 10 mg ONCE ONCE VAG 12/12/16 14:30 12/12/16 14:31 DC 12/12/16 15:45 Lidocaine 30 ml 30 ml ONCE PRN INJ EPISIOTOMY/TEARING 12/12/16 14:30 12/14/16 16:04 DC Oxytocin/Lactated Ringer's 500 ml @ 125 mls/hr ONCE -MAY REPEAT X1 IV 12/12/16 14:30 12/14/16 16:04 DC 12/14/16 12:29 Oxytocin/Lactated Ringer's 500 ml @ 125 mls/hr ONCE IV 12/12/16 14:30 12/14/16 16:04 DC 12/14/16 12:59 Ibuprofen (Motrin) 600 mg ONCE PRN PO Mild Pain (Pain Score 1-3) 12/12/16 14:30 12/14/16 16:04 DC 12/14/16 14:43 Acetaminophen/ Hydrocodone Bitart 2 tab 2 tab ONCE PRN PO Moderate to Severe Pain (4-10) 12/12/16 14:30 12/14/16 16:04 DC Lactated Ringer's 1,000 ml @ 2,000 mls/hr Q30M PRN IV PRE-EPIDURAL BOLUS 12/12/16 15:00 12/14/16 16:04 DC 12/13/16 19:52 Oxytocin/Lactated Ringer's 500 ml @ 0 mls/hr ONCE PRN IV For Hemorrhage Management 12/12/16 14:30 12/14/16 16:04 DC Methylergonovine Maleate (Methergine) 0.2 mg ONCE PRN IM VAGINAL BLEEDING 12/12/16 14:30 12/14/16 16:04 DC Carboprost Tromethamine (Hemabate) 250 mcg ONCE PRN IM VAGINAL BLEEDING 12/12/16 14:30 12/14/16 16:04 DC Misoprostol 1000 mcg 1,000 mcg ONCE PRN DE VAGINAL BLEEDING 12/12/16 14:30 12/14/16 16:04 DC Magnesium Sulfate 100 ml @ 200 mls/hr ONCE IV 12/12/16 14:30 12/12/16 14:59 DC 12/12/16 14:58 Magnesium Sulfate 500 ml @ 25 mls/hr Q20H IV 12/12/16 14:10 12/14/16 10:08 DC 12/13/16 21:46 Oxytocin/Lactated Ringer's 500 ml @ 0 mls/hr Q0M IV 12/13/16 05:30 12/14/16 16:04 DC 12/13/16 21:47 Acetaminophen (Tylenol Tab) 650 mg Q4H PRN PO PAIN AND OR ELEVATED TEMP 12/13/16 08:00 12/13/16 08:00 DC Acetaminophen (Tylenol Tab) 650 mg ONCE STAT PO 12/13/16 07:51 12/13/16 07:58 DC 12/13/16 08:05 Al Hydrox/Mg Hydrox/Simethicone (Mag-Al Plus) 30 ml Q4H PRN PO GASTROINTESTINAL UPSET 12/13/16 07:50 12/14/16 16:04 DC 12/13/16 08:05 Acetaminophen 650 mg 650 mg Q4H PRN PO PAIN AND OR ELEVATED TEMP 12/13/16 08:00 12/14/16 16:04 DC Ampicillin 100 ml @ 100 mls/hr ONCE ONCE IV 12/13/16 23:00 12/13/16 23:59 DC 12/13/16 23:18 Ampicillin (Ampicillin 1 Gm/ NS (Pmx)) 50 ml @ 100 mls/hr Q4H IV 12/14/16 03:00 12/14/16 16:04 DC 12/14/16 11:08 Butorphanol Tartrate (Stadol) 2 mg STK-MED ONCE .ROUTE 12/13/16 16:43 12/13/16 16:44 DC Butorphanol Tartrate 2 mg 2 mg Q2H PRN IV PAIN 12/13/16 16:45 12/14/16 16:04 DC 12/13/16 16:50 Fentanyl/ Ropivacaine 100 ml @ STK-MED ONCE .ROUTE 12/13/16 20:37 12/13/16 20:38 DC Naloxone HCl (Narcan) 0.1 mg Q2M PRN IV FOR RESP RATE 8 OR LESS 12/13/16 23:00 12/14/16 16:05 DC Ketorolac Tromethamine (Toradol) 30 mg Q6H PRN IV PAIN 12/13/16 23:00 12/14/16 16:05 DC Hydromorphone HCl (Dilaudid) 0.2 mg Q3H PRN IV PAIN LEVEL 1-5 12/13/16 23:00 12/14/16 16:05 DC Hydromorphone HCl (Dilaudid) 0.4 mg Q3H PRN IV PAIN LEVEL 6-10 12/13/16 23:00 12/14/16 16:05 DC Diphenhydramine HCl (Benadryl) 25 mg Q6H PRN IV ITCHING 12/13/16 23:00 12/14/16 16:05 DC Ondansetron HCl (Zofran Inj) 4 mg Q6H PRN IV NAUSEA AND/OR VOMITING 12/13/16 23:00 12/14/16 16:05 DC Fentanyl/ Ropivacaine 100 ml 100 ml EPIDURAL INFUSION EPI 12/13/16 23:00 12/14/16 16:05 DC 12/14/16 06:12 Cefazolin Sodium/ Dextrose 50 ml @ 100 mls/hr ONCE ONCE IVPB 12/14/16 09:30 12/14/16 09:59 DC Magnesium Sulfate 500 ml @ 50 mls/hr Q10H IV 12/14/16 10:00 12/14/16 16:05 DC 12/14/16 12:58 Oxytocin/Lactated Ringer's 500 ml @ 125 mls/hr Q4H IV 12/14/16 16:02 12/15/16 00:01 DC 12/14/16 19:54 Ibuprofen (Motrin) 600 mg Q6 PO 12/14/16 18:00 12/15/16 17:05 DC 12/15/16 12:23 Acetaminophen (Tylenol Tab) 650 mg Q4H PRN PO PAIN LEVEL 1-5 12/14/16 16:30 Acetaminophen/ Hydrocodone Bitart ([place] (5/325)) 1 tab Q4H PRN PO PAIN LEVEL 1-5 12/14/16 16:30 12/15/16 17:05 DC Acetaminophen/ Hydrocodone Bitart ([place] (5/325)) 2 tab Q4H PRN PO PAIN LEVEL 6-10 12/14/16 16:30 12/15/16 17:05 DC 12/14/16 19:58 Oxycodone/Aspirin (Percodan) 1 tab Q3H PRN PO PAIN LEVEL 1-5 12/14/16 16:30 12/15/16 17:05 DC 12/15/16 15:16 Oxycodone/Aspirin (Percodan) 2 tab Q3H PRN PO PAIN LEVEL 6-10 12/14/16 16:30 12/15/16 17:05 DC 12/14/16 23:38 Ondansetron HCl (Zofran Inj) 4 mg Q6H PRN IV NAUSEA AND/OR VOMITING 12/14/16 16:30 Senna/Docusate Sodium (Senokot-S) 1 tab BID PO 12/15/16 09:00 12/16/16 09:18 Witch [place]/ Glycerin (Tucks Pads) 1 pad BEDSIDE MEDICATION PRN DE HEMORRHOID/EPISIOTMY PAIN 12/14/16 16:30 12/16/16 11:33 Benzocaine (Dermoplast [place]) 1 spray BEDSIDE MEDICATION PRN TOP HEMORRHOID/EPISIOTMY PAIN 12/14/16 16:30 12/16/16 11:34 Dibucaine (Nupercainal) 1 applic BEDSIDE MEDICATION PRN DE HEMORRHOID/EPISIOTMY PAIN 12/14/16 16:30 Lanolin ([id number]) 1 applic BEDSIDE MEDICATION PRN TOP BEDSIDE FOR PAULA TO NIPPLES 12/14/16 16:30 12/14/16 17:42 Measles/Mumps/ Rubella Vaccine Live 0.5 ml 0.5 ml ONCE ONCE SC* 12/16/16 09:00 12/16/16 09:04 DC Magnesium Sulfate 500 ml @ 50 mls/hr Q10H IV 12/14/16 18:00 12/15/16 14:54 DC 12/15/16 07:39 Lactated Ringer's (Lr) 1,000 ml @ 75 mls/hr [id number] PRN IV MAGNESIUM SULFATE USE 12/15/16 02:30 12/15/16 14:54 DC 12/15/16 02:41 Ibuprofen (Motrin) 800 mg Q6 PO 12/15/16 18:00 12/16/16 11:33 Condition on Discharge Physical Assessment Voiding: Yes Bowel Movement: Yes Breast: Soft, non-tender Fundus: Firm Abdomen and Incision: Post day 2 Doing Well Afebrile Ambulatory Chest Clear Breasts are soft , Nipples are intact Abdomen is soft Fundus is firm Moderate amount of lochia Incision is clean ,No evidence of infection No calf tenderness No ankle edema New born is doing well, Breast feeding Episiotomy: Perineal laceration is healing well Calf Tenderness: No Patient Condition: Good TARUN JOHNSON MD Dec 16, 2016 11:49
--- NOTE | 2016-12-16 11:49 | DS ---
Date/Time of Note Date/Time of Note DATE: 12/16/16 TIME: 11:40 Obstetrical Discharge Record Final Diagnosis Final Diagnosis: Term delivered Vaginal Delivery Obstetrical Delivery: Spontaneous Section Primary Indication Admitted in labor. Was complaining of some head ache BP was elevated Complications Augmentation: No Induction: No Gestational Age at Rupture Laboratory Tests Test 12/15/16 12:59 Magnesium Level 6.1mg/dl Current Medications Medications (Trade) Dose Ordered Sig/Marquis Route PRN Reason Start Time Stop Time Status Last Admin Dose Admin Lactated Ringer's (Lr) 1,000 ml @ 125 mls/hr Q8H IV 12/12/16 14:10 12/14/16 16:04 DC 12/14/16 04:47 Dinoprostone (Cervidil Vaginal Supp) 10 mg ONCE ONCE VAG 12/12/16 14:30 12/12/16 14:31 DC 12/12/16 15:45 Lidocaine 30 ml 30 ml ONCE PRN INJ EPISIOTOMY/TEARING 12/12/16 14:30 12/14/16 16:04 DC Oxytocin/Lactated Ringer's 500 ml @ 125 mls/hr ONCE -MAY REPEAT X1 IV 12/12/16 14:30 12/14/16 16:04 DC 12/14/16 12:29 Oxytocin/Lactated Ringer's 500 ml @ 125 mls/hr ONCE IV 12/12/16 14:30 12/14/16 16:04 DC 12/14/16 12:59 Ibuprofen (Motrin) 600 mg ONCE PRN PO Mild Pain (Pain Score 1-3) 12/12/16 14:30 12/14/16 16:04 DC 12/14/16 14:43 Acetaminophen/ Hydrocodone Bitart 2 tab 2 tab ONCE PRN PO Moderate to Severe Pain (4-10) 12/12/16 14:30 12/14/16 16:04 DC Lactated Ringer's 1,000 ml @ 2,000 mls/hr Q30M PRN IV PRE-EPIDURAL BOLUS 12/12/16 15:00 12/14/16 16:04 DC 12/13/16 19:52 Oxytocin/Lactated Ringer's 500 ml @ 0 mls/hr ONCE PRN IV For Hemorrhage Management 12/12/16 14:30 12/14/16 16:04 DC Methylergonovine Maleate (Methergine) 0.2 mg ONCE PRN IM VAGINAL BLEEDING 12/12/16 14:30 12/14/16 16:04 DC Carboprost Tromethamine (Hemabate) 250 mcg ONCE PRN IM VAGINAL BLEEDING 12/12/16 14:30 12/14/16 16:04 DC Misoprostol 1000 mcg 1,000 mcg ONCE PRN IN VAGINAL BLEEDING 12/12/16 14:30 12/14/16 16:04 DC Magnesium Sulfate 100 ml @ 200 mls/hr ONCE IV 12/12/16 14:30 12/12/16 14:59 DC 12/12/16 14:58 Magnesium Sulfate 500 ml @ 25 mls/hr Q20H IV 12/12/16 14:10 12/14/16 10:08 DC 12/13/16 21:46 Oxytocin/Lactated Ringer's 500 ml @ 0 mls/hr Q0M IV 12/13/16 05:30 12/14/16 16:04 DC 12/13/16 21:47 Acetaminophen (Tylenol Tab) 650 mg Q4H PRN PO PAIN AND OR ELEVATED TEMP 12/13/16 08:00 12/13/16 08:00 DC Acetaminophen (Tylenol Tab) 650 mg ONCE STAT PO 12/13/16 07:51 12/13/16 07:58 DC 12/13/16 08:05 Al Hydrox/Mg Hydrox/Simethicone (Mag-Al Plus) 30 ml Q4H PRN PO GASTROINTESTINAL UPSET 12/13/16 07:50 12/14/16 16:04 DC 12/13/16 08:05 Acetaminophen 650 mg 650 mg Q4H PRN PO PAIN AND OR ELEVATED TEMP 12/13/16 08:00 12/14/16 16:04 DC Ampicillin 100 ml @ 100 mls/hr ONCE ONCE IV 12/13/16 23:00 12/13/16 23:59 DC 12/13/16 23:18 Ampicillin (Ampicillin 1 Gm/ NS (Pmx)) 50 ml @ 100 mls/hr Q4H IV 12/14/16 03:00 12/14/16 16:04 DC 12/14/16 11:08 Butorphanol Tartrate (Stadol) 2 mg STK-MED ONCE .ROUTE 12/13/16 16:43 12/13/16 16:44 DC Butorphanol Tartrate 2 mg 2 mg Q2H PRN IV PAIN 12/13/16 16:45 12/14/16 16:04 DC 12/13/16 16:50 Fentanyl/ Ropivacaine 100 ml @ STK-MED ONCE .ROUTE 12/13/16 20:37 12/13/16 20:38 DC Naloxone HCl (Narcan) 0.1 mg Q2M PRN IV FOR RESP RATE 8 OR LESS 12/13/16 23:00 12/14/16 16:05 DC Ketorolac Tromethamine (Toradol) 30 mg Q6H PRN IV PAIN 12/13/16 23:00 12/14/16 16:05 DC Hydromorphone HCl (Dilaudid) 0.2 mg Q3H PRN IV PAIN LEVEL 1-5 12/13/16 23:00 12/14/16 16:05 DC Hydromorphone HCl (Dilaudid) 0.4 mg Q3H PRN IV PAIN LEVEL 6-10 12/13/16 23:00 12/14/16 16:05 DC Diphenhydramine HCl (Benadryl) 25 mg Q6H PRN IV ITCHING 12/13/16 23:00 12/14/16 16:05 DC Ondansetron HCl (Zofran Inj) 4 mg Q6H PRN IV NAUSEA AND/OR VOMITING 12/13/16 23:00 12/14/16 16:05 DC Fentanyl/ Ropivacaine 100 ml 100 ml EPIDURAL INFUSION EPI 12/13/16 23:00 12/14/16 16:05 DC 12/14/16 06:12 Cefazolin Sodium/ Dextrose 50 ml @ 100 mls/hr ONCE ONCE IVPB 12/14/16 09:30 12/14/16 09:59 DC Magnesium Sulfate 500 ml @ 50 mls/hr Q10H IV 12/14/16 10:00 12/14/16 16:05 DC 12/14/16 12:58 Oxytocin/Lactated Ringer's 500 ml @ 125 mls/hr Q4H IV 12/14/16 16:02 12/15/16 00:01 DC 12/14/16 19:54 Ibuprofen (Motrin) 600 mg Q6 PO 12/14/16 18:00 12/15/16 17:05 DC 12/15/16 12:23 Acetaminophen (Tylenol Tab) 650 mg Q4H PRN PO PAIN LEVEL 1-5 12/14/16 16:30 Acetaminophen/ Hydrocodone Bitart ([place] (5/325)) 1 tab Q4H PRN PO PAIN LEVEL 1-5 12/14/16 16:30 12/15/16 17:05 DC Acetaminophen/ Hydrocodone Bitart ([place] (5/325)) 2 tab Q4H PRN PO PAIN LEVEL 6-10 12/14/16 16:30 12/15/16 17:05 DC 12/14/16 19:58 Oxycodone/Aspirin (Percodan) 1 tab Q3H PRN PO PAIN LEVEL 1-5 12/14/16 16:30 12/15/16 17:05 DC 12/15/16 15:16 Oxycodone/Aspirin (Percodan) 2 tab Q3H PRN PO PAIN LEVEL 6-10 12/14/16 16:30 12/15/16 17:05 DC 12/14/16 23:38 Ondansetron HCl (Zofran Inj) 4 mg Q6H PRN IV NAUSEA AND/OR VOMITING 12/14/16 16:30 Senna/Docusate Sodium (Senokot-S) 1 tab BID PO 12/15/16 09:00 12/16/16 09:18 Witch Kinga/ Glycerin (Tucks Pads) 1 pad BEDSIDE MEDICATION PRN IN HEMORRHOID/EPISIOTMY PAIN 12/14/16 16:30 12/16/16 11:33 Benzocaine (Dermoplast [place]) 1 spray BEDSIDE MEDICATION PRN TOP HEMORRHOID/EPISIOTMY PAIN 12/14/16 16:30 12/16/16 11:34 Dibucaine (Nupercainal) 1 applic BEDSIDE MEDICATION PRN IN HEMORRHOID/EPISIOTMY PAIN 12/14/16 16:30 Lanolin ([id number]) 1 applic BEDSIDE MEDICATION PRN TOP BEDSIDE FOR PAULA TO NIPPLES 12/14/16 16:30 12/14/16 17:42 Measles/Mumps/ Rubella Vaccine Live 0.5 ml 0.5 ml ONCE ONCE SC* 12/16/16 09:00 12/16/16 09:04 DC Magnesium Sulfate 500 ml @ 50 mls/hr Q10H IV 12/14/16 18:00 12/15/16 14:54 DC 12/15/16 07:39 Lactated Ringer's (Lr) 1,000 ml @ 75 mls/hr [id number] PRN IV MAGNESIUM SULFATE USE 12/15/16 02:30 12/15/16 14:54 DC 12/15/16 02:41 Ibuprofen (Motrin) 800 mg Q6 PO 12/15/16 18:00 12/16/16 11:33 Condition on Discharge Physical Assessment Voiding: Yes Bowel Movement: Yes Breast: Soft, non-tender Fundus: Firm Abdomen and Incision: Post day 2 Doing Well Afebrile Ambulatory Chest Clear Breasts are soft , Nipples are intact Abdomen is soft Fundus is firm Moderate amount of lochia Incision is clean ,No evidence of infection No calf tenderness No ankle edema New born is doing well, Breast feeding Episiotomy: Perineal laceration is healing well Calf Tenderness: No Patient Condition: Good TARUN JOHNSON MD Dec 16, 2016 11:49
--- NOTE | 2016-12-16 11:49 | DS ---
Date/Time of Note Date/Time of Note DATE: 12/16/16 TIME: 11:40 Obstetrical Discharge Record Final Diagnosis Final Diagnosis: Term delivered Vaginal Delivery Obstetrical Delivery: Spontaneous Section Primary Indication Admitted in labor. Was complaining of some head ache BP was elevated Complications Augmentation: No Induction: No Gestational Age at Rupture Laboratory Tests Test 12/15/16 12:59 Magnesium Level 6.1mg/dl Current Medications Medications (Trade) Dose Ordered Sig/Marquis Route PRN Reason Start Time Stop Time Status Last Admin Dose Admin Lactated Ringer's (Lr) 1,000 ml @ 125 mls/hr Q8H IV 12/12/16 14:10 12/14/16 16:04 DC 12/14/16 04:47 Dinoprostone (Cervidil Vaginal Supp) 10 mg ONCE ONCE VAG 12/12/16 14:30 12/12/16 14:31 DC 12/12/16 15:45 Lidocaine 30 ml 30 ml ONCE PRN INJ EPISIOTOMY/TEARING 12/12/16 14:30 12/14/16 16:04 DC Oxytocin/Lactated Ringer's 500 ml @ 125 mls/hr ONCE -MAY REPEAT X1 IV 12/12/16 14:30 12/14/16 16:04 DC 12/14/16 12:29 Oxytocin/Lactated Ringer's 500 ml @ 125 mls/hr ONCE IV 12/12/16 14:30 12/14/16 16:04 DC 12/14/16 12:59 Ibuprofen (Motrin) 600 mg ONCE PRN PO Mild Pain (Pain Score 1-3) 12/12/16 14:30 12/14/16 16:04 DC 12/14/16 14:43 Acetaminophen/ Hydrocodone Bitart 2 tab 2 tab ONCE PRN PO Moderate to Severe Pain (4-10) 12/12/16 14:30 12/14/16 16:04 DC Lactated Ringer's 1,000 ml @ 2,000 mls/hr Q30M PRN IV PRE-EPIDURAL BOLUS 12/12/16 15:00 12/14/16 16:04 DC 12/13/16 19:52 Oxytocin/Lactated Ringer's 500 ml @ 0 mls/hr ONCE PRN IV For Hemorrhage Management 12/12/16 14:30 12/14/16 16:04 DC Methylergonovine Maleate (Methergine) 0.2 mg ONCE PRN IM VAGINAL BLEEDING 12/12/16 14:30 12/14/16 16:04 DC Carboprost Tromethamine (Hemabate) 250 mcg ONCE PRN IM VAGINAL BLEEDING 12/12/16 14:30 12/14/16 16:04 DC Misoprostol 1000 mcg 1,000 mcg ONCE PRN OK VAGINAL BLEEDING 12/12/16 14:30 12/14/16 16:04 DC Magnesium Sulfate 100 ml @ 200 mls/hr ONCE IV 12/12/16 14:30 12/12/16 14:59 DC 12/12/16 14:58 Magnesium Sulfate 500 ml @ 25 mls/hr Q20H IV 12/12/16 14:10 12/14/16 10:08 DC 12/13/16 21:46 Oxytocin/Lactated Ringer's 500 ml @ 0 mls/hr Q0M IV 12/13/16 05:30 12/14/16 16:04 DC 12/13/16 21:47 Acetaminophen (Tylenol Tab) 650 mg Q4H PRN PO PAIN AND OR ELEVATED TEMP 12/13/16 08:00 12/13/16 08:00 DC Acetaminophen (Tylenol Tab) 650 mg ONCE STAT PO 12/13/16 07:51 12/13/16 07:58 DC 12/13/16 08:05 Al Hydrox/Mg Hydrox/Simethicone (Mag-Al Plus) 30 ml Q4H PRN PO GASTROINTESTINAL UPSET 12/13/16 07:50 12/14/16 16:04 DC 12/13/16 08:05 Acetaminophen 650 mg 650 mg Q4H PRN PO PAIN AND OR ELEVATED TEMP 12/13/16 08:00 12/14/16 16:04 DC Ampicillin 100 ml @ 100 mls/hr ONCE ONCE IV 12/13/16 23:00 12/13/16 23:59 DC 12/13/16 23:18 Ampicillin (Ampicillin 1 Gm/ NS (Pmx)) 50 ml @ 100 mls/hr Q4H IV 12/14/16 03:00 12/14/16 16:04 DC 12/14/16 11:08 Butorphanol Tartrate (Stadol) 2 mg STK-MED ONCE .ROUTE 12/13/16 16:43 12/13/16 16:44 DC Butorphanol Tartrate 2 mg 2 mg Q2H PRN IV PAIN 12/13/16 16:45 12/14/16 16:04 DC 12/13/16 16:50 Fentanyl/ Ropivacaine 100 ml @ STK-MED ONCE .ROUTE 12/13/16 20:37 12/13/16 20:38 DC Naloxone HCl (Narcan) 0.1 mg Q2M PRN IV FOR RESP RATE 8 OR LESS 12/13/16 23:00 12/14/16 16:05 DC Ketorolac Tromethamine (Toradol) 30 mg Q6H PRN IV PAIN 12/13/16 23:00 12/14/16 16:05 DC Hydromorphone HCl (Dilaudid) 0.2 mg Q3H PRN IV PAIN LEVEL 1-5 12/13/16 23:00 12/14/16 16:05 DC Hydromorphone HCl (Dilaudid) 0.4 mg Q3H PRN IV PAIN LEVEL 6-10 12/13/16 23:00 12/14/16 16:05 DC Diphenhydramine HCl (Benadryl) 25 mg Q6H PRN IV ITCHING 12/13/16 23:00 12/14/16 16:05 DC Ondansetron HCl (Zofran Inj) 4 mg Q6H PRN IV NAUSEA AND/OR VOMITING 12/13/16 23:00 12/14/16 16:05 DC Fentanyl/ Ropivacaine 100 ml 100 ml EPIDURAL INFUSION EPI 12/13/16 23:00 12/14/16 16:05 DC 12/14/16 06:12 Cefazolin Sodium/ Dextrose 50 ml @ 100 mls/hr ONCE ONCE IVPB 12/14/16 09:30 12/14/16 09:59 DC Magnesium Sulfate 500 ml @ 50 mls/hr Q10H IV 12/14/16 10:00 12/14/16 16:05 DC 12/14/16 12:58 Oxytocin/Lactated Ringer's 500 ml @ 125 mls/hr Q4H IV 12/14/16 16:02 12/15/16 00:01 DC 12/14/16 19:54 Ibuprofen (Motrin) 600 mg Q6 PO 12/14/16 18:00 12/15/16 17:05 DC 12/15/16 12:23 Acetaminophen (Tylenol Tab) 650 mg Q4H PRN PO PAIN LEVEL 1-5 12/14/16 16:30 Acetaminophen/ Hydrocodone Bitart ([place] (5/325)) 1 tab Q4H PRN PO PAIN LEVEL 1-5 12/14/16 16:30 12/15/16 17:05 DC Acetaminophen/ Hydrocodone Bitart ([place] (5/325)) 2 tab Q4H PRN PO PAIN LEVEL 6-10 12/14/16 16:30 12/15/16 17:05 DC 12/14/16 19:58 Oxycodone/Aspirin (Percodan) 1 tab Q3H PRN PO PAIN LEVEL 1-5 12/14/16 16:30 12/15/16 17:05 DC 12/15/16 15:16 Oxycodone/Aspirin (Percodan) 2 tab Q3H PRN PO PAIN LEVEL 6-10 12/14/16 16:30 12/15/16 17:05 DC 12/14/16 23:38 Ondansetron HCl (Zofran Inj) 4 mg Q6H PRN IV NAUSEA AND/OR VOMITING 12/14/16 16:30 Senna/Docusate Sodium (Senokot-S) 1 tab BID PO 12/15/16 09:00 12/16/16 09:18 Witch [place]/ Glycerin (Tucks Pads) 1 pad BEDSIDE MEDICATION PRN OK HEMORRHOID/EPISIOTMY PAIN 12/14/16 16:30 12/16/16 11:33 Benzocaine (Dermoplast [place]) 1 spray BEDSIDE MEDICATION PRN TOP HEMORRHOID/EPISIOTMY PAIN 12/14/16 16:30 12/16/16 11:34 Dibucaine (Nupercainal) 1 applic BEDSIDE MEDICATION PRN OK HEMORRHOID/EPISIOTMY PAIN 12/14/16 16:30 Lanolin (Tdk-O-Cnjvra) 1 applic BEDSIDE MEDICATION PRN TOP BEDSIDE FOR PAULA TO NIPPLES 12/14/16 16:30 12/14/16 17:42 Measles/Mumps/ Rubella Vaccine Live 0.5 ml 0.5 ml ONCE ONCE SC* 12/16/16 09:00 12/16/16 09:04 DC Magnesium Sulfate 500 ml @ 50 mls/hr Q10H IV 12/14/16 18:00 12/15/16 14:54 DC 12/15/16 07:39 Lactated Ringer's (Lr) 1,000 ml @ 75 mls/hr [id number] PRN IV MAGNESIUM SULFATE USE 12/15/16 02:30 12/15/16 14:54 DC 12/15/16 02:41 Ibuprofen (Motrin) 800 mg Q6 PO 12/15/16 18:00 12/16/16 11:33 Condition on Discharge Physical Assessment Voiding: Yes Bowel Movement: Yes Breast: Soft, non-tender Fundus: Firm Abdomen and Incision: Post day 2 Doing Well Afebrile Ambulatory Chest Clear Breasts are soft , Nipples are intact Abdomen is soft Fundus is firm Moderate amount of lochia Incision is clean ,No evidence of infection No calf tenderness No ankle edema New born is doing well, Breast feeding Episiotomy: Perineal laceration is healing well Calf Tenderness: No Patient Condition: Good TARUN JOHNSON MD Dec 16, 2016 11:49
[2016-12-17] MEDS ORDERED: LABE100T3 PO (06:31)
== END 2016-12-16 14:05 | disposition home or self-care (01) | DRG 775 ==
LOC: OBT 12:45 → L-D 12:47 → OBT 14:12 → PP1 12-14 15:26
PROVIDERS: ADMIT Obstetrics & Gynecology; ATTEND Obstetrics & Gynecology
PROC: 10E0XZZ Delivery of Products of Conception, External Approach (ICD-10-PCS; principal; 2016-12-14)
PROC: 0HQ9XZZ Repair Perineum Skin, External Approach (ICD-10-PCS; 2016-12-14)
PROC: 3E0P3VZ Introduction of Hormone into Female Reproductive, Percutaneous Approach (ICD-10-PCS; 2016-12-14)
DX: O99.214 Obesity complicating childbirth (principal); E66.01 Morbid (severe) obesity due to excess calories; Z68.35 Body mass index [BMI] 35.0-35.9, adult; O70.0 First degree perineal laceration during delivery; O69.81X0 Labor and delivery complicated by cord around neck, without compression, not applicable or unspecified; Z3A.38 38 weeks gestation of pregnancy; Z37.0 Single live birth
CPT/HCPCS: 62319; 76815; 76818; 80053; 81003; 82575; 83735; 84156; 84560; 85025; 85384; 85610; 85730; 86592; 86900; 86901; 88307; 99464; G0463; J0290; J0595; J2590; J3010; J3475; J7120

== ENCOUNTER 2016-12-17 02:17 | Emergency (ER) | payer MEDICAID ==
[~2016-12-17] VITALS: Ht 167.6 cm; Wt 97.7 kg
[2016-12-17 02:22] VITALS: Ht 167.6 cm; Wt 97.7 kg
[2016-12-17 06:00] VITALS: TEMP 98.2
[2016-12-17] MEDS ORDERED: LABETALOL HCL 20MG INJ IV ONE (06:00)
--- NOTE | 2016-12-17 06:16 | ERD ---
ER Documentation Chief Complaint Chief Complaint states body numbness/generalize weakness, just got dc'd today from ob HPI 26-year-old female 4 days presenting to the ER complaining of generalized body numbness that started a few hours ago. She states she was recently discharged yesterday from OB after having her first baby. She delivered at 38 weeks by vaginal delivery. She was induced secondary to hypertension and presumed preeclampsia. She was given magnesium IV while here prior to induction. Her hospital stay was uneventful after the delivery. She was discharged home without any blood pressure medications. Today she suddenly started feeling tingling in her lower body than her upper body. She states she feels like she cannot move. She denies any headache, vision disturbance, abdominal pain, chest pain, shortness of breath, or new leg swelling. She is urinating normally. No significant vaginal bleeding, only scant bleeding. ROS All systems reviewed and are negative except as per history of present illness. Medications Home Meds Active Scripts Labetalol Hcl* (Labetalol Hcl*) 100 Mg Tablet, 100 MG PO BID for 7 Days, TAB Prov:NATALIE IRAHETA MD 12/17/16 Reported Medications Vit No.124/Iron/FA ( Vitamin Tablet) 1 Each Tablet, 1 EACH PO, TAB 12/01/16 Allergies Allergies: Coded Allergies: No Known Allergy (Unverified , 12/13/16) PMhx/Soc History of Surgery: No Anesthesia Reaction: No Hx Neurological Disorder: No Hx Respiratory Disorders: No Hx Cardiac Disorders: No Hx Psychiatric Problems: No Hx Miscellaneous Medical Probl: No Hx Alcohol Use: No Hx Substance Use: No Hx Tobacco Use: No Smoking Status: Never smoker FmHx Family History: No coronary disease, No diabetes Physical Exam Vitals Vital Signs Date Time Temp Pulse Resp B/P Pulse Ox O2 Delivery O2 Flow Rate FiO2 12/17/16 06:00 98.2 70 15 141/93 98 Room Air 12/17/16 04:40 84 19 133/102 100 Room Air 12/17/16 04:22 81 14 149/105 100 Room Air 12/17/16 03:00 91 15 128/97 100 Room Air 12/17/16 02:22 98.1 106 20 146/95 97 Physical Exam Const: Nontoxic, no apparent distress, appears tired Head: Atraumatic Eyes: Normal Conjunctiva, PERRLA, EOMI ENT: Normal External Ears, Nose and Mouth. Neck: Full range of motion..~ No meningismus. Resp: Clear to auscultation bilaterally Cardio: Regular rate and rhythm, no murmurs Abd: Soft, non tender, non distended. Normal bowel sounds Skin: No petechiae or rashes Back: No midline or flank tenderness Ext: No cyanosis, no pedal edema. 2+ distal pulses in all 4 extremities. Neur: Awake and alert, oriented 3, cranial nerves intact, strength 4+ out of 5 in all 4 extremities, seemingly secondary to poor effort. Sensations intact to pinprick in all distributions and temperature sensation intact. Gait normal and steady. 1+ patellar tendon reflexes in bilateral lower extremities. Psych: Depressed mood and Affect Result Diagram: 12/17/1633712/17/168 Results 24 hrs Laboratory Tests Test 12/17/16 03:38 12/17/16 03:43 12/17/16 04:00 White Blood Count 11.710^3/ul Red Blood Count 3.2410^6/ul Hemoglobin 9.7g/dl Hematocrit 29.7% Mean Corpuscular Volume 91.7fl Mean Corpuscular Hemoglobin 29.9pg Mean Corpuscular Hemoglobin Concent 32.7g/dl Red Cell Distribution Width 13.7% Platelet Count 06713^3/UL Mean Platelet Volume 10.3fl Neutrophils % 71.3% Lymphocytes % 21.2% Monocytes % 5.4% Eosinophils % 0.9% Basophils % 0.3% Nucleated Red Blood Cells % 0.0/100WBC Neutrophils # 8.410^3/ul Lymphocytes # 2.510^3/ul Monocytes # 0.610^3/ul Eosinophils # 0.110^3/ul Basophils # 0.010^3/ul Nucleated Red Blood Cells # 0.010^3/ul Prothrombin Time 12.2Sec Prothrombin Time Ratio 1.0 INR International Normalized Ratio 0.91 Activated Partial Thromboplast Time 30.3Sec Sodium Level 140mmol/L Potassium Level 4.6mmol/L Chloride Level 108mmol/L Carbon Dioxide Level 22mmol/L Anion Gap 15 Blood Urea Nitrogen 15mg/dl Creatinine 0.78mg/dl Glucose Level 93mg/dl Calcium Level 8.8mg/dl Magnesium Level 2.2mg/dl Total Bilirubin 0.1mg/dl Direct Bilirubin 0.00mg/dl Indirect Bilirubin 0.1mg/dl Aspartate Amino Transf (AST/SGOT) 66IU/L Alanine Aminotransferase (ALT/SGPT) 61IU/L Alkaline Phosphatase 167IU/L Total Protein 6.8g/dl Albumin 3.5g/dl Globulin 3.30g/dl Albumin/Globulin Ratio 1.06 Bedside Glucose 92mg/dL Urine Color STRAW Urine Clarity CLEAR Urine pH 7.0 Urine Specific [place] 1.003 Urine Ketones NEGATIVEmg/dL Urine Nitrite NEGATIVEmg/dL Urine Bilirubin NEGATIVEmg/dL Urine Urobilinogen NEGATIVEmg/dL Urine Leukocyte Esterase 2+Janae/ul Urine Microscopic RBC 27/HPF Urine Microscopic WBC 46/HPF Urine Squamous Epithelial Cells FEW/HPF Urine Bacteria FEW/HPF Urine Hemoglobin 3+mg/dL Urine Glucose NEGATIVEmg/dL Urine Total Protein NEGATIVEmg/dl Current Medications Medications (Trade) Dose Ordered Sig/Marquis Route PRN Reason Start Time Stop Time Status Last Admin Dose Admin Labetalol HCl (Labetalol) 10 mg ONCE ONCE IV 12/17/16 06:00 12/17/16 06:01 DC Procedures/MDM Labs CBC: Mild leukocytosis, mild anemia CMP: No evidence of electrolyte abnormality, renal failure, hypoglycemia, liver failure, or biliary obstruction. Mild AST and alk phos elevation. UA: No proteinuria, positive for WBCs and RBCs, however sample not clean MDM Patient is presenting with generalized body numbness with vitals only notable for mild hypertension with a systolic and diastolic blood pressure over 140/90. Patient appears to be neurovascularly intact. I have a low suspicion for pulmonary embolism or intracranial hemorrhage. Preeclampsia remains on the differential. I attempted to page her [employer] physician Dr. Woo, but was unable to get a hold of this physician. Then called the labor is the on-call, , who does not think the patient's symptoms are secondary to preeclampsia. She did recommend trying labetalol in the ED and discharging the patient with low-dose labetalol for her borderline hypertension. She does not think the patient needs admission at this time, which I agree with. She recommended follow-up with the OB tomorrow. Labetalol 10 mg IV was given with improvement of her blood pressure. I spoke with the patient and she is agreeable to this plan. She states she feels like she is getting strength back. She agrees to call her OB tomorrow. Return precautions were discussed. I encouraged her to return for any worsening symptoms. Prescription for labetalol 100 mg twice daily was given. Departure Diagnosis: Primary Impression: Numbness and tingling in both hands Additional Impressions: Numbness and tingling of both legs hypertension Condition: Stable NATALIE IRAHETA MD Dec 17, 2016 06:16
[2016-12-17] MEDS ORDERED: LABE100T3 PO (06:31)
[2016-12-17 07:56] VITALS: BP 132/89; PULSE 71; RESP 16
== END 2016-12-17 08:05 | disposition home or self-care (01) ==
LOC: E/R 02:17
DX: O16.5 Unspecified maternal hypertension, complicating the puerperium (principal); R40.2252 Coma scale, best verbal response, oriented, at arrival to emergency department; R20.0 Anesthesia of skin; R20.2 Paresthesia of skin; R40.2142 Coma scale, eyes open, spontaneous, at arrival to emergency department; R40.2362 Coma scale, best motor response, obeys commands, at arrival to emergency department; R07.9 Chest pain, unspecified
CPT/HCPCS: 36415; 80053; 81001; 82962; 83735; 85025; 85610; 85730; 93005; 96374; Z7502; Z7610